=== PATIENT | male | born 1960 | race Caucasian/White ===

== ENCOUNTER 2024-02-27 15:33 | Emergency (ER) | payer OTHER ==
--- NOTE | 2024-02-27 16:20 | RAD REPORT ---
EXAMINATION: TWO VIEW CHEST XR CLINICAL INDICATION: Cough;Congestion TECHNIQUE: 2 views of the chest was performed. COMPARISON: No prior exam. FINDINGS: Subtle linear opacities in the left lung base posteriorly may represent atelectasis or developing inf iltrate. The lungs are otherwise clear. The heart is normal in size. No displaced fractures evident.
[2024-02-27 16:58] LABS: SARS-CoV-2 Antigen CONTROL BLUE LINE VIS/BG OK; SARS-CoV-2 Antigen Rapid Res Negative (Negative)
--- NOTE | 2024-02-27 17:02 | EDPHYS ---
Physician Documentation [facility] Name: Viral Cueto Age: 64 yrs Sex: Male : 1960 Arrival Date: 02/27/2024 Time: 15:33 Bed 15 Private MD: ED Physician Navdeep Mcneil HPI: 02/26 16:35 This 64 yrs old Male presents to ER via Ambulatory with complaints of Cough, Fever. kb 16:35 Pt is a 64 year old male who presents for cough, congestion, fever, bodyaches that kb started 4 days ago. Denies n/v/d. No aggravating or alleviating factors. Historical: - Allergies: 15:48 No Known Allergies; rs5 - PMHx: 15:48 Hypercholesterolemia; Hypertensive disorder; Hypothyroidism; rs5 - PSHx: 15:48 None; rs5 - Immunization history:: Adult Immunizations up to date. - Infectious Disease History:: Denies. - Social history:: Smoking status: Patient denies any tobacco usage or history of. ROS: 16:35 Constitutional: As per HPI kb Exam: 16:35 Constitutional: This is a well developed, well nourished patient who is awake, alert, kb and in no acute distress. Head/Face: Normocephalic, atraumatic. ENT: Moist Mucous membranes Cardiovascular: Regular rate Respiratory: Respirations even and unlabored. No increased work of breathing. Talking in full sentences Abdomen/GI: Soft, non-tender. No distention Skin: Warm, dry with normal turgor. Normal color. MS/ Extremity: Pulses equal, no cyanosis. Neurovascular intact. Full, normal range of motion. Neuro: Awake and alert, GCS 15, oriented to person, place, time, and situation. Vital Signs: 15:46 BP 140 / 89; Pulse 81; Resp 19; Temp 99.7(TE); Pulse Ox 99% on R/A; rs5 17:06 BP 131 / 88; Pulse 72; Resp 16; Temp 99.4(T); Pulse Ox 97% on R/A; Pain 0/10; le1 17:06 Pain Scale: Adult le1 MDM: 15:39 Medical Screening Exam initiated kb 16:36 Differential Diagnosis: Bronchitis Influenza Upper Respiratory Infection Other covid, kb pneumonia. Data reviewed: vital signs, nurses notes. Historians other than the Patient: Spouse/Significant Other: . 16:36 Test considered but Not performed: Labs: cbc, cmp considered but pt is nontoxic in kb appearance, resp even and unlabored, lungs clear bilaterally. Educated on return precautions. 17:02 Counseling: I had a detailed discussion with the patient and/or guardian regarding the kb historical points, exam findings, and any diagnostic results supporting the discharge/admit diagnosis, lab results, radiology results, the need for outpatient follow up, a family practitioner, to return to the emergency department if symptoms worsen or persist or if there are any questions or concerns that arise at home. 02/26 15:49 Order name: Flu; Complete Time: 17:01 kb 02/26 15:49 Order name: SARS-COV-2 Antigen Rapid; Complete Time: 17:01 kb 02/26 15:49 Order name: Chest Pa And Lat (2 Views) XRAY; Complete Time: 16:24 kb Administered Medications: 17:10 Drug: AZITHromycin PO 500 mg PO once Route: PO; le1 17:10 Follow up: Response: Medication administered at discharge. le1 Disposition Summary: 02/27/24 17:02 Discharge Ordered Notes: Location: Home kb Condition: Stable kb Diagnosis - Pneumonia, unspecified organism kb - Influenza due to identified novel influenza A virus kb Followup: kb - With: Emergency Department - When: As needed - Reason: Worsening of condition Followup: kb - With: Private Physician - When: 2 - 3 days - Reason: Recheck today's complaints, Continuance of care, Re-evaluation by your physician Discharge Instructions: - Discharge Summary Sheet kb - Community-Acquired Pneumonia, Adult, [id number] kb - Influenza, Adult, [id number] kb Forms: - Medication Reconciliation Form kb - Antibiotic Education kb - Prescription Opioid Use kb - Patient Portal Instructions kb - Leadership Thank You Letter kb Prescriptions: - Zithromax 500 mg Oral Tablet - take 1 tablet ORAL route once daily for 5 days; 5 tablet; Refills: 0, Product kb Selection Permitted Addendum: 03/03/2024 07:45 I was immediately available for consultation during this patient's visit. I did not e c2 personally see the patient or discuss the patient with the AYDEN. . Signatures: Dispatcher [employer] Monika Cai FNP-C FNP-Ruiz Moralesy, RN RN rs5 Navdeep Mcneil MD MD ec2 Cecilio Carrasco RN RN le1 Corrections: (The following items were deleted from the chart) 02/26 15:50 15:50 Influenza Screen (A \T\ B)+BA.LAB.BRZ ordered. EDMS EDMS 15:50 15:50 SARS-COV-2 Antigen Rapid+I.LAB.BRZ ordered. EDMS EDMS
--- NOTE | 2024-02-27 17:02 | ER ---
Nurse's Notes [facility] Name: Viral Cueto Age: 64 yrs Sex: Male : 1960 Arrival Date: 02/27/2024 Time: 15:33 Bed 15 Private MD: Diagnosis: Pneumonia, unspecified organism;Influenza due to identified novel influenza A virus Presentation: 02/26 15:46 Chief complaint: Patient states: cough, congestion, fever, and generalized body aches rs5 that started three days ago. Coronavirus screen: At this time, the client does not indicate any symptoms associated with coronavirus-19. Ebola Screen: No symptoms or risks identified at this time. Initial Sepsis Screen: Does the patient meet any 2 criteria? No. Patient's initial sepsis screen is negative. Does the patient have a suspected source of infection? No. Patient's initial sepsis screen is negative. Risk Assessment: Do you want to hurt yourself or someone else? Patient reports no desire to harm self or others. Onset of symptoms was February 23, 2024. 15:46 Method Of Arrival: Ambulatory rs5 15:46 Acuity: JOE 4 rs5 Historical: - Allergies: 15:48 No Known Allergies; rs5 - PMHx: 15:48 Hypercholesterolemia; Hypertensive disorder; Hypothyroidism; rs5 - PSHx: 15:48 None; rs5 - Immunization history:: Adult Immunizations up to date. - Infectious Disease History:: Denies. - Social history:: Smoking status: Patient denies any tobacco usage or history of. Screenin:37 [facility] ED Fall Risk Assessment (Adult) History of falling in the last 3 months, le1 including since admission No falls in past 3 months (0 pts) Confusion or Disorientation No (0 pts) Intoxicated or Sedated No (0 pts) Impaired Gait No (0 pts) Mobility Assist Device Used No (0 pt) Altered Elimination No (0 pt) Score/Fall Risk Level 0 - 2 = Low Risk Oriented to surroundings, Maintained a safe environment, Educated pt \T\ family on fall prevention, incl call for assistance when getting out of bed, Assessed \T\ reinforced patient's understanding of fall precautions, Hourly rounding (assess needs \T\ fall precautionary measures) done. Abuse screen: Denies threats or abuse. Denies injuries from another. Nutritional screening: No deficits noted. Tuberculosis screening: No symptoms or risk factors identified. Assessment: 16:35 General: Appears in no apparent distress. comfortable, Behavior is calm, cooperative. le1 Pain: Denies pain. Neuro: No deficits noted. Cardiovascular: No deficits noted. Respiratory: No deficits noted. GI: No deficits noted. : No deficits noted. EENT: Reports cough and flu like symptoms. Vital Signs: 15:46 BP 140 / 89; Pulse 81; Resp 19; Temp 99.7(TE); Pulse Ox 99% on R/A; rs5 17:06 BP 131 / 88; Pulse 72; Resp 16; Temp 99.4(T); Pulse Ox 97% on R/A; Pain 0/10; le1 17:06 Pain Scale: Adult le1 ED Course: 15:34 Patient arrived in ED. im 15:39 [facility] Lo [facility]C [facility] kb 15:39 Navdeep Mcneil MD is Attending Physician. kb 15:48 Triage completed. rs5 16:04 Chest Pa And Lat (2 Views) XRAY In Process Unspecified. EDMS 16:26 Cecilio Carrasco, RN is Primary Nurse. le1 16:35 SARS-COV-2 Antigen Rapid Sent. le1 16:35 Flu Sent. le1 16:36 Patient has correct armband on for positive identification. Call light in reach. Side le1 rails up X2. Adult w/ patient. Provided Education on: Patient to use call light if needing assistance. 17:10 No provider procedures requiring assistance completed. Patient did not have IV access le1 during this emergency room visit. 17:10 Patient notified of wait time. le1 Administered Medications: 17:10 Drug: AZITHromycin PO 500 mg PO once Route: PO; le1 17:10 Follow up: Response: Medication administered at discharge. le1 Medication: 17:10 VIS not applicable for this client. le1 Outcome: 17:02 Discharge ordered by . kb 17:07 Discharged to home ambulatory, le1 17:07 Condition: stable 17:07 Discharge instructions given to patient, Instructed on discharge instructions, follow up and referral plans. medication usage, Demonstrated understanding of instructions, follow-up care, medications, Prescriptions given X 1, 17:15 Patient left the ED. le1 Signatures: Dispatcher [employer] EDCA Monika Lo FNP-C FNP-Ckb James Jay, RN RN rs5 Frances Sandoval LaKendric, RN RN le1
[2024-02-27] MEDS ORDERED: AZITHROMYCIN 250 MG TAB ONE (17:08)
[2024-02-27 18:38] VITALS: BP 131/88; TEMP 99.4; O2SAT 97
== END 2024-02-27 17:15 | disposition home or self-care (01) ==
LOC: ER 15:33
DX: J10.00 Influenza due to other identified influenza virus with unspecified type of pneumonia (principal); Z11.52 Encounter for screening for COVID-19
CPT/HCPCS: 36415; 71046; 87804; 87811; 99284